=== PATIENT | female | born 1950 | race Caucasian/White ===

== ENCOUNTER 2017-12-14 06:30 | Observation (INO) | payer OTHER ==
[~2017-12-14] VITALS: Ht 160 cm; Wt 77.1 kg
[2017-12-14] MEDS ORDERED: LOVASTATIN20 M1 PO (06:45)
[2017-12-14] MEDS ORDERED: LEVOTHYROXINE100 MC1 PO (06:45)
[2017-12-14] MEDS ORDERED: LOSARTAN POTASS50 M1 PO (06:45)
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
--- NOTE | 2017-12-14 08:04 | CT SCAN REPORT ---
EXAMINATIONS: CT HEAD WITHOUT CONTRAST AND CT CERVICAL SPINE WITHOUT CONTRAST CLINICAL INFORMATION: Fall, head injury, cervical spine pain COMPARISON: CT head dated 06/20/2012 TECHNIQUE: Contiguous helical images of the brain were obtained without IV contrast. Contiguous helical images of the cervical spine were obtained without IV contrast. Multiplanar reconstructions were performed. DLP: 959 mGy-cm. FINDINGS: There is a 4 mm high density focus in the high parasagittal left frontal lobe centered at the alvarado-white junction, new since CT from 06/20/2012. This is concerning for a focus of hemorrhage. There is no surrounding edema. No mass effect. No additional acute intracranial hemorrhage is identified. No pathologic extra-axial fluid collections. No midline shift. There is mild diffuse cerebral volume loss with commensurate dilation of the ventricles. No evidence of acute large vascular territory ischemic changes. Right maxillary sinus mucus retention cyst again noted. Small right sphenoid sinus retention cyst. Possible small air-fluid level in the left sphenoid sinus. Mastoid air cells are clear. There is no skull fracture. The soft tissues are unremarkable. Nonspecific straightening of the cervical spine may be positional versus muscle spasm. No evidence of traumatic subluxation. No evidence of acute fracture. Multilevel degenerative changes with disc and facet disease. There is no prevertebral soft tissue swelling. Small bilateral cervical lymph nodes which are not pathologically enlarged by size criteria. The visualized lung apices are clear. IMPRESSION: Small focus of intraparenchymal hemorrhage in the high parasagittal left frontal lobe which is compatible with hemorrhagic contusion in the context of recent trauma. However, a small hemorrhagic mass can have this appearance. Further evaluation with follow-up head CT or brain MRI is warranted. This critical result was discussed with Dr. Torers by telephone on 12/14/2017 7:56 AM and it was ascertained that the content and urgency of the report was understood at the time of direct communication. No evidence of acute fracture or traumatic subluxation of the cervical spine. Inflammatory paranasal sinus disease.
--- NOTE | 2017-12-14 08:12 | RADIOLOGY REPORT ---
EXAMINATION: XR FOOT AND ANKLE, LEFT CLINICAL INFORMATION: Status post fall COMPARISON: None TECHNIQUE: 3 views of the left foot. 3 views of the left ankle. FINDINGS: Left foot: No evidence of acute fracture or dislocation. Mild degenerative changes involving the first MTP joint and in the hindfoot. Plantar calcaneal enthesophyte. Os trigonum. Vascular calcifications are evident. No significant soft tissue swelling. Left ankle: No evidence of acute fracture or dislocation. The ankle mortise is intact. No significant soft tissue swelling. No evidence of joint effusion. Vascular calcifications are noted. IMPRESSION: No evidence of acute fracture or dislocation of the left foot and ankle. Incidental findings as noted above.
--- NOTE | 2017-12-14 08:45 | RADIOLOGY REPORT ---
EXAMINATION: XR SHOULDER, RIGHT CLINICAL INFORMATION: Pain after fall downstairs. COMPARISON: None TECHNIQUE: Right shoulder, 3 views FINDINGS: Alignment is normal at the acromioclavicular and glenohumeral joints. No acute fracture or subluxation. The acromiohumeral distance is normal. Incidentally noted is a small subcortical cyst of the posterior aspect of the greater tuberosity of the humerus. The visualized right lung is well expanded and clear. No evidence of rib fracture, pneumothorax or pleural effusion. Multilevel discovertebral degenerative change of the partially visualized cervical spine.. IMPRESSION: No acute findings at the right shoulder.
--- NOTE | 2017-12-14 11:28 | Admission Core Measures ---
Acute Coronary Syndrome (CM) ACS Core Measures Acute Coronary Syndrome Diagnosis No Congestive Heart Failure (NEW) CHF Core Measures Congestive Heart Failure Diagnosis No Cerebrovascular Accident (NEW) CVA Core Measures CVA/TIA Diagnosis No Venous Thromboembolism VTE Core Mehnaz (View Protocol) VTE Risk Factors Age>40 No Mechanical VTE Prophylaxis d/t N/A MechProphylax Ordered No VTE Pharm Prophylaxis d/t Surgical Contraindication Problem List As ranked by this Provider includes Assessment & Plan 1. Cerebral contusion HOME MEDS Home Med List Levothyroxine Sodium 100 MCG TABLET 1 TAB PO DAILY HYPOTHYROID (Reported) Losartan Potassium 50 MG TABLET 1 TAB PO DAILY HTN (Reported) Lovastatin 20 MG TABLET 1 TAB PO DAILY HYPERLIPIDEMIA (Reported)
--- NOTE | 2017-12-14 11:41 | History & Physical ---
General Information and HPI MD Statement: I have seen and personally examined SACHIN CALLEJAS and documented this H&P. The patient is a 67 year old F who presented with a patient stated chief complaint of [headache status post fall]. Source of Information: patient, old records Exam Limitations: no limitations History of Present Illness: Mrs. Perkins is a 67-year-old female with a past medical history of hypertension, hypothyroidism, hypercholesterolemia who presents to [facility] emergency room status post slip and fall at home walking the dog and hitting her head. She states that she was not dizzy did not complain of chest pain shortness of breath or vision or headache prior to fall. Head CT today taken in the emergency room demonstrates cerebral contusion possibly consistent with hemorrhagic mass without mass effect. Other extremity examination of extremity and spine are unremarkable. He has no other complaints at this time only of headache. Allergies/Medications Allergies: Coded Allergies: cyclobenzaprine (From FLEXERIL) (Mild, DIZZINESS 12/14/17) metaxalone (From SKELAXIN) (Mild, DIZZINESS 12/14/17) Penicillins ( 12/14/17) Home Med list Levothyroxine Sodium 100 MCG TABLET 1 TAB PO DAILY HYPOTHYROID (Reported) Losartan Potassium 50 MG TABLET 1 TAB PO DAILY HTN (Reported) Lovastatin 20 MG TABLET 1 TAB PO DAILY HYPERLIPIDEMIA (Reported) Past History Travel History Traveled to [place] past 21 day No Medical History Neurological: NONE EENT: NONE Cardiovascular: hypertension, hyperlipidemia Respiratory: NONE Gastrointestinal: NONE Hepatic: NONE Renal: NONE Musculoskeletal: NONE Psychiatric: NONE Endocrine: diabetes, hypothyroidism Blood Disorders: NONE Cancer(s): 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 Exam & Diagnostic Data Last 24 Hrs of Vital Signs/I&O Vital Signs Date Time Temp Pulse Resp B/P B/P Pulse O2 O2 Flow FiO2 Mean Ox Delivery Rate 12/14 1016 96.0 77 20 160/74 97 Room Air 12/14 0819 97.0 80 20 170/72 97 Room Air 12/14 0646 162/72 12/14 0642 99 Room Air 12/14 0640 97.0 86 18 194/85 99 Room Air Intake & Output 12/14 1600 12/14 0800 12/14 0000 Intake Total Output Total Balance Patient 170 lb Weight Weight Reported by Patient Measurement Method Physical Exam General Appearance Alert, Oriented X3, Cooperative, No Acute Distress Skin No Significant Lesion HEENT Atraumatic, PERRLA Cardiovascular Regular Rate, Normal S1, Normal S2 Lungs Clear to Auscultation, Normal Air Movement Abdomen Normal Bowel Sounds, Soft, No Tenderness Neurological Normal Gait, Normal Speech, Strength at 5/5 X4 Ext, Cranial Nerves 3-12 NL, Reflexes 2+ Extremities No Tenderness/Swelling Diagnostic Data Other Results SERVICE DATE: 12/14/17 EXAM TYPE: CAT - CT CERV SPINE WO IV CONTRAST; CT HEAD WO IV CONTRAST EXAMINATIONS: CT HEAD WITHOUT CONTRAST AND CT CERVICAL SPINE WITHOUT CONTRAST CLINICAL INFORMATION: Fall, head injury, cervical spine pain COMPARISON: CT head dated 06/20/2012 TECHNIQUE: Contiguous helical images of the brain were obtained without IV contrast. Contiguous helical images of the cervical spine were obtained without IV contrast. Multiplanar reconstructions were performed. DLP: 959 mGy-cm. FINDINGS: There is a 4 mm high density focus in the high parasagittal left frontal lobe centered at the alvarado-white junction, new since CT from 06/20/2012. This is concerning for a focus of hemorrhage. There is no surrounding edema. No mass effect. No additional acute intracranial hemorrhage is identified. No pathologic extra-axial fluid collections. No midline shift. There is mild diffuse cerebral volume loss with commensurate dilation of the ventricles. No evidence of acute large vascular territory ischemic changes. Right maxillary sinus mucus retention cyst again noted. Small right sphenoid sinus retention cyst. Possible small air-fluid level in the left sphenoid sinus. Mastoid air cells are clear. There is no skull fracture. The soft tissues are unremarkable. Nonspecific straightening of the cervical spine may be positional versus muscle spasm. No evidence of traumatic subluxation. No evidence of acute fracture. Multilevel degenerative changes with disc and facet disease. There is no prevertebral soft tissue swelling. Small bilateral cervical lymph nodes which are not pathologically enlarged by size criteria. The visualized lung apices are clear. IMPRESSION: Small focus of intraparenchymal hemorrhage in the high parasagittal left frontal lobe which is compatible with hemorrhagic contusion in the context of recent trauma. However, a small hemorrhagic mass can have this appearance. Further evaluation with follow-up head CT or brain MRI is warranted. This critical result was discussed with Dr. Torres by telephone on 12/14/2017 7:56 AM and it was ascertained that the content and urgency of the report was understood at the time of direct communication. No evidence of acute fracture or traumatic subluxation of the cervical spine. Inflammatory paranasal sinus disease. DICTATED BY: Matilde Abarca MD DATE/TIME DICTATED:12/14/17727 EDUCATION LIAISON:LINO DATE/TIME TRANSCRIBED:12/14/17727 Assessment/Plan Assessment: Ms. Perkins is a 67-year-old female who is currently being admitted for CAT scan findings of the head consistent with cerebral contusion possibly hemorrhagic mass status post mechanical fall. This case was discussed with Dr. Keller who suggests that the patient be admitted to observation for 23 hour and repeat CAT scan in 6 hours after initial CAT scan to assess size of mass in question. If there is no increase in size of mass no further studies will be needed her diet will be advanced and she will be observed for neurologic changes overnight and most likely be discharged in the morning. Dr. Keller is aware of this patient's clinical condition and will evaluate the patient in a.m. As Ranked By This Provider Problem List: 1. Cerebral contusion Qualifiers : : : Qualified Code: S06.320A - Contusion and laceration of left cerebrum without loss of consciousness, initial encounter Core Measures/Misc (06/20) Acute Coronary Syndrome ACS Diagnosis: No Congestive Heart Failure Congestive Heart Failure Diagnosis No Cerebrovascular Accident CVA/TIA Diagnosis: No VTE (View Protocol) VTE Risk Factors Age>40 No Mechanical VTE Prophylaxis d/t N/A MechProphylax Ordered No VTE Pharm Prophylaxis d/t Surgical Contraindication Sepsis (View protocol) Sepsis Present: No
[2017-12-14 12:19] LABS: ABSOLUTE BASOPHIL COUNT 0 /CUMM (0.0-0.2); ABSOLUTE EOSINOPHIL COUNT 0 /CUMM (0.0-0.7); ABSOLUTE GRANULOCYTE CT 7.7 /CUMM (1.4-6.5); ABSOLUTE LYMPH COUNT 0.5 /CUMM (1.2-3.4); ABSOLUTE MONOCYTE COUNT 0.2 /CUMM (0.10-0.60); BASOPHIL % 0.5 % (0.0-2.0); EOSINOPHIL % 0.1 % (0-5); MEAN CORPUSCULAR HGB 31.6 PG (27.0-31.0); MEAN CORPUSCULAR HGB CONC 32.9 G/DL (33.0-37.0); MEAN PLATELET VOLUME 9.1 FL (7.4-10.4); PLATELET COUNT 234 /CUMM (130-400); RBC DISTRIBUTION WIDTH 12.6 % (11.5-14.5); RED BLOOD CELL CT 4.37 /CUMM (4.20-5.40); WHITE BLOOD CELL COUNT 8.4 /CUMM (4.8-10.8)
[2017-12-14 12:31] LABS: PT 11.8 SEC (9.4-12.5)
[2017-12-14 12:46] LABS: GRANULOCYTE % 90.8 % (42.2-75.2)
--- NOTE | 2017-12-14 14:18 | CT SCAN REPORT ---
EXAMINATION: CT HEAD WITHOUT CONTRAST CLINICAL INFORMATION: Fall COMPARISON: 12/14/2017 CT scan at 6:55 AM and 06/20/2012 CT scan TECHNIQUE: Contiguous axial imaging was performed from the skull base to vertex without intravenous administration of contrast. DLP: 622.53 mGy-cm FINDINGS: There is a 4 mm high-density focus in the left frontal lobe in the parasagittal region. There is minimal surrounding edema. It has not changed as compared to the CT scan the same day. No additional acute intracranial hemorrhage. There is no evidence of territorial infarction. No abnormal mass effect or midline shift is seen. Peralta to white matter differentiation is well preserved. No extra-axial fluid collections are identified. The ventricles are normal in size. The osseous structures and soft tissues are normal. A large right maxillary sinus mucus retention cyst again noted. The mastoid air cells are well aerated. IMPRESSION: A 4 mm intraparenchymal hemorrhage in the high parasagittal left frontal lobe, unchanged. In the setting of the recent trauma, it is compatible with acute intracranial hemorrhage, although a hemorrhagic mass is not excluded.
[2017-12-14 20:35] VITALS: BP 162/69
[2017-12-15 06:50] VITALS: BP 121/57
--- NOTE | 2017-12-15 08:24 | PN- Neurology ---
See Addendum Subjective Subjective: PT IN BED, MINIMAL HEADACHE, 10/13, WELL CONTROLLED WITH IV TYLENOL. AMBULATING. TOLERATING DIET. VOIDING. +BM. DENIES DIZZINESS OR NUMBNESS. NO CP/SOB PT STATES THAT SHE NORMALLY TAKES A BABY ASPIRIN AT HOME BUT HASNT TAKEN IT THE LAST SEVERAL DAYS Objective Vital Signs and I&Os Vital Signs Date Time Temp Pulse Resp B/P B/P Pulse O2 O2 Flow FiO2 Mean Ox Delivery Rate 12/15 0650 98.7 73 18 121/57 95 Room Air 12/14 203 98.5 75 18 162/69 96 Room Air 12/15 2007 98.1 80 18 166/82 99 Room Air 12/14 1826 98.2 75 20 161/71 100 Room Air 12/14 1601 97.2 80 20 129/58 98 Room Air 12/14 1355 98.1 78 20 177/77 97 Room Air 12/14 1245 97.0 78 20 160/70 97 Room Air 12/14 1016 96.0 77 20 160/74 97 Room Air Intake & Output 12/15 1600 12/15 0800 12/15 0000 12/14 1600 12/14 0800 12/14 0000 Intake Total 840 555 Output Total Balance 840 555 Intake, IV 120 75 Intake, Oral 720 480 Number 1 0 Bowel Movements Patient 170 lb 170 lb Weight Weight Reported by Patient Measurement Method Physical Exam: GEN-NAD, AAOX3 NEURO- CRANIAL NERVES INTACT, NO DEFICITS HEENT-EOMI, MMM RESP-CLEAR CARDIO-RRR ABD- ND, SOFT, NT EXT- STRENGTH EQUAL BILAT IN UPPER AND LOWER EXT, SENSORY AND MOTOR FUNC INTACT. DORSUM ON LEFT FOOT WITH SLIGHT ECCHYMOSIS AND TENDER TO PALPATION Current Medications: Current Medications Sig/Aura Start time Last Medication Dose Route Stop Time Status Admin Acetaminophen 1,000 MG Q6P PRN 12/14 2200 AC 12/15 N/A 1 UNIT IV 0818 Atorvastatin Calcium 5 MG 1700 12/14 1700 AC 12/14 PO 2036 Dextrose/Sodium 1,000 ML .Q10H 12/14 1200 DC 12/14 Chloride IV 1015 Levothyroxine Sodium 0.1 MG DAILY AC 12/15 0700 AC 12/15 PO 0532 Losartan Potassium 50 MG DAILY 12/15 1000 AC PO Assessment/Plan Assessment: 76YO F SP FALL YESTERDAY with CAT scan findings of the head consistent with cerebral contusion possibly hemorrhagic mass. repeat CT 6hr later was stable. here for 24h Observation. pt neuro exam is stable, no deficits. Plan: Dr Keller to see pt this morning pt can be discharged to home this afternoon as long has there no new changes in neuro exam pt will follow-up with Dr Keller in 7-10 days as outpatient Rec to cont to hold ASA81 until after seeing Dr Keller in office Rec tylenol for pain PRN at home
--- NOTE | 2017-12-15 08:40 | Patient Discharge Instructions ---
See Addendum Discharge Instructions General Discharge Information You were seen/treated for: fall with head contusion and intracranial hemorrhage You had these procedures: none, observation with repeat CT Watch for these problems: increased headache confusion sensory or motor function change Call Surgeon to remove: Mike (follow-up in 1 week) Diet Continue normal diet: Yes Activity Activity Self Limited: Yes Acute Coronary Syndrome Inclusion Criteria At DC or during hospital stay patient has or had the following: ACS DIAGNOSIS No Discharge Core Measures Meds if any: Prescribed or Continued at Discharge Meds if any: NOT Prescribed or Continued at Discharge Congestive Heart Failure Inclusion Criteria At DC or during hospital stay patient has or had the following: CHF DIAGNOSIS No Discharge Core Measures Meds if any: Prescribed or Continued at Discharge Meds if any: NOT Prescribed or Continued at Discharge Cerebrovascular accident Inclusion Criteria At DC or during hospital stay patient has or had the following: CVA/TIA Diagnosis No Discharge Core Measures Meds if any: Prescribed or Continued at Discharge Meds if any: NOT Prescribed or Continued at Discharge Venous thromboembolism Inclusion Criteria VTE Diagnosis No VTE Type NONE VTE Confirmed by (Test) NONE Discharge Core Measures - Per Current guidelines, there needs to be overlap - treatment for the first 5 days of Warfarin therapy. - If discharged on Warfarin prior to 5 days of - overlap therapy, the patient will need to be - assessed for post discharge needs including - *Post discharge parental anticoagulation - *Warfarin and/or parental anticoagulation education - *Follow up date to check INR post discharge At least 5 days overlap therapy as Inpatient No Meds if any: Prescribed or Continued at Discharge Note: Overlap Therapy is Warfarin and Anticoagulant Meds if any: NOT Prescribed or Continued at Discharge
[2017-12-15 14:57] VITALS: BP 144/79
== END 2017-12-15 15:50 ==
LOC: ERH 06:30 → ERHI 10:43 → 2NB 10:43 → CANRESERV 15:21 → ENRESERV 15:21 → ENTRNSPT 20:10 → 2NB 20:22 → EDTRNSPTSTS 20:23 → EDTRNSPT 20:23 → CMPTRNSPT 20:36 → ENPENDDIS 12-15 08:56 → 2NB 12-15 15:50
PROVIDERS: Physician Assistant
DX: S06.320A Contusion and laceration of left cerebrum without loss of consciousness, initial encounter (principal); I10 Essential (primary) hypertension; E03.9 Hypothyroidism, unspecified; E78.00 Pure hypercholesterolemia, unspecified; E11.9 Type 2 diabetes mellitus without complications; M79.672 Pain in left foot; W01.0XXA Fall on same level from slipping, tripping and stumbling without subsequent striking against object, initial encounter; Y93.89 Activity, other specified; Y92.9 Unspecified place or not applicable
CPT/HCPCS: 6040; 73030-RT; 73610-LT; 73630-LT; 82436; 96374; 96376; 97116-GP; 97161-GP; G0378; J0131; J7042